=== PATIENT | female | born 1945 | race Caucasian/White ===

== ENCOUNTER → 2020-10-05 | Outpatient (CLI) | payer OTHER | LOC: SJCVC 10:34 | PROVIDERS: ATTEND Internal Medicine Cardiovascular Disease | DX: I25.10 Atherosclerotic heart disease of native coronary artery without angina pectoris (principal); I10 Essential (primary) hypertension; E78.00 Pure hypercholesterolemia, unspecified; R07.9 Chest pain, unspecified; R01.1 Cardiac murmur, unspecified; E11.9 Type 2 diabetes mellitus without complications; E05.00 Thyrotoxicosis with diffuse goiter without thyrotoxic crisis or storm; E78.5 Hyperlipidemia, unspecified; F32.9 Major depressive disorder, single episode, unspecified; Z78.9 Other specified health status; Z86.010 Personal history of colon polyps; Z87.891 Personal history of nicotine dependence; Z72.89 Other problems related to lifestyle; Z79.899 Other long term (current) drug therapy; Z88.2 Allergy status to sulfonamides; Z88.0 Allergy status to penicillin; Z88.8 Allergy status to other drugs, medicaments and biological substances ==

== ENCOUNTER → 2020-10-13 | Outpatient (CLI) | payer OTHER | LOC: RAD 08:14 | PROVIDERS: ATTEND Internal Medicine | DX: Z12.31 Encounter for screening mammogram for malignant neoplasm of breast (principal) ==

== ENCOUNTER → 2020-11-05 | Outpatient (CLI) | payer OTHER ==
[~2020-11-05] MED LIST: LORATIDINE 10 M10 M1 PO; REPATHA SY140 MG/1 M SUBQ; SYNTHROID75 MC1 PO; ZOLOFT100 MG PO
== END ==
LOC: SJCVCIMAG 10-28 09:12
PROVIDERS: ATTEND Internal Medicine Cardiovascular Disease
DX: I35.8 Other nonrheumatic aortic valve disorders (principal); I11.9 Hypertensive heart disease without heart failure; R94.31 Abnormal electrocardiogram [ECG] [EKG]; E11.9 Type 2 diabetes mellitus without complications; E78.5 Hyperlipidemia, unspecified; I25.10 Atherosclerotic heart disease of native coronary artery without angina pectoris; Z79.899 Other long term (current) drug therapy; Z87.891 Personal history of nicotine dependence

== ENCOUNTER → 2020-11-11 | Outpatient (CLI) | payer OTHER ==
[2020-11-11 07:41] LABS: HEMATOCRIT 36.7 % (37.0-47.0); HEMOGLOBIN 11.9 gm/dL (12.0-15.0); MCH 28.4 pg (26.0-34.0); MCHC 32.5 g/dL (28.0-37.0); MCV 87.3 fL (80.0-100.0); RBC 4.2 mil/uL (4.20-5.00); RDW 15.3 % (10.5-14.5); WBC 6.1 thou/uL (4.0-11.0)
[2020-11-11 07:48] LABS: CALCIUM 8.8 mg/dL (8.5-10.1); CREATININE 0.8 mg/dL (0.6-1.0); POTASSIUM 3.9 mmol/L (3.5-5.1)
--- NOTE | 2020-11-15 15:01 | CATHLAB ---
[facility] [place] [address] INVASIVE PROCEDURE REPORT Name: TOMEKA MCFARLAND Room #: REG SHAKIRA Nascimento.#: [id number] Admission: 11/11/20 Attend Phys: Matias Palmer MD, Discharge: Date of : 49 Report #: [id number] THIS REPORT FOR: cc: Allen Wen MD, Michael S. MD Mancuso, Gerald M. MD [facility] ~ APPROVED REPORT Study performed: 11/11/2020 07:35:02 Patient Details Patient Status: Out-Patient Room #: The patient is a 75 year-old female Event Personnel Matias Palmer [employer]ista, Mira Anne RTR Monitor, Marry Johnson RN RN, Jo Lora RTR, END MAKER Scrub Procedures Performed Art Access - R femoral artery* Juan Access - R femoral vein Right and Left Heart Cath w/or w/o Coronarie [id number] RL [id number] Initial Mod Sed Same Phys/QHP Gr5y [id number] Mod Sed Same Phys/QHP Ea [id number] Hemostasis w/ Mynx Hemostasis with Manual pressure Procedure Narrative The Right Groin^ was infiltrated with 1% Lidocaine subcutaneous anesthesia. A Right Heart Catheterization was performed with a 7 Fr. [place] catheter and pressure were recorded. Cardiac outputs were obtained by the Thermal Dilution method. A PINNACLE 6FR TIF Sheath #[id number] sheath was inserted into the RFA^. Coronary angiography was performed using coronary diagnostic catheters. The right coronary system was accessed and visualized with a JR4 catheter. The left coronary system was accessed and visualized with a JL4 catheter. The left ventricle was accessed and visualized with a PIGTAIL catheter. Left ventriculogram was performed in 30 degree projection. Pre-demployment femoral angiogram was performed . Closure device was deployed with a Fr MYNXGRIP 6/7F #[id number]. The patient tolerated the procedure well and there were no complications associated with the procedure. There was no hematoma. Intraoperative Conscious Sedation Sedation start time: 8:55 Case end Time: 9:[address] [address] INVASIVE PROCEDURE REPORT Name: TOMEKA MCFARLAND Room #: REG [id number] Admission: 11/11/20 Attend Phys: Matias Palmer, Discharge: Date of : 49 Report #: [id number] Fentanyl 75 mcg Versed 1.5 mg Fluoro Time: 3.10 minutes Dose: DAP 7210.90 cGycm2 825 mGy Contrast Type and Amount: Omnipaque 70 ml Hemodynamics The right atrial mean pressure is 9 mmHg. The right ventricular pressure is 38/1 mmHg. The pulmonary artery pressure is 34/12 mmHg with a mean of 22 mmHg. The mean pulmonary capillary wedge pressure is 15 mmHg. The aortic pressure is 119/49 mmHg with a mean of 72 mmHg. The left ventricular pressure is 144/0 mmHg with a mean of mmHg. The left ventricular end diastolic pressure is 15 mmHg. The cardiac output using thermo method is 5.10 L/min. The cardiac index using thermo method is 2.43 L/min/m2. Conclusion #1. Successful right heart catheterization with cardiac output by thermodilution. See above hemodynamics. #2 left ventricle is normal in size with LV function lower limits of normal EF 50 to 55% 1+ mitral regurgitation is noted. #3 left main free of disease giving rise to LAD and circumflex. #4 the LAD extends to the apex there is moderate disease in the proximal segment a 50% eccentric lesion with a mildly diseased distal segment which extends short of the apex. #5 circumflex OM is nondominant but large in distribution and widely patent #6 anatomically dominant right coronary artery is smaller in caliber with a small PDA is essentially a codominant system by distribution. No occlusive disease. Recommendations and plan: Continue aggressive risk factor modification. Some evidence for diastolic dysfunction metabolic syndrome. Based on clinical history and mild elevation pulmonary pressure. LAD is a 6 smaller caliber vessel and stops short of the apex. Moderate proximal lesion will follow. <ELECTRONICALLY SIGNED> By: Matias Palmer MD, FACC 11/15/201499 1500 99 Matias Palmer MD, FACC /INF
== END | disposition home or self-care (01) ==
LOC: CATH 06:26
PROVIDERS: ATTEND Internal Medicine Cardiovascular Disease
DX: R07.9 Chest pain, unspecified (principal); I25.10 Atherosclerotic heart disease of native coronary artery without angina pectoris; E11.9 Type 2 diabetes mellitus without complications; E78.5 Hyperlipidemia, unspecified; E07.9 Disorder of thyroid, unspecified; Z98.890 Other specified postprocedural states; Z79.899 Other long term (current) drug therapy; Z96.641 Presence of right artificial hip joint; Z90.49 Acquired absence of other specified parts of digestive tract; Z82.49 Family history of ischemic heart disease and other diseases of the circulatory system; Z88.2 Allergy status to sulfonamides; Z88.8 Allergy status to other drugs, medicaments and biological substances

== ENCOUNTER → 2021-03-18 | Outpatient (CLI) | payer OTHER | LOC: SJCVC 11:31 | PROVIDERS: ATTEND Internal Medicine Cardiovascular Disease | DX: I25.10 Atherosclerotic heart disease of native coronary artery without angina pectoris (principal); I35.0 Nonrheumatic aortic (valve) stenosis; E78.00 Pure hypercholesterolemia, unspecified; I51.89 Other ill-defined heart diseases; R09.89 Other specified symptoms and signs involving the circulatory and respiratory systems; E11.9 Type 2 diabetes mellitus without complications; E78.5 Hyperlipidemia, unspecified; E05.00 Thyrotoxicosis with diffuse goiter without thyrotoxic crisis or storm; F32.9 Major depressive disorder, single episode, unspecified; Z86.010 Personal history of colon polyps; Z87.891 Personal history of nicotine dependence; Z72.89 Other problems related to lifestyle; Z79.84 Long term (current) use of oral hypoglycemic drugs; Z79.899 Other long term (current) drug therapy; Z88.2 Allergy status to sulfonamides; Z88.0 Allergy status to penicillin; Z88.8 Allergy status to other drugs, medicaments and biological substances ==